=== PATIENT | female | born 1980 | race Caucasian/White ===

== ENCOUNTER 2016-06-20 21:05 | Emergency (ER) | payer OTHER ==
[~2016-06-20 21:05] MED LIST: GLUCOPHAGE 500500 MG PO; NORCO 5-325 TA1 EACH PO
[2016-06-20 22:51] LABS: HEMOGLOBIN 13.5 gm/dl (12.3-15.3); RED BLOOD COUNT 4.72 M/UL (4.00-5.10)
[2016-06-20 23:15] LABS: BUN/CREATININE RATIO 12 (0-10)
== END 2016-06-21 05:05 | disposition home or self-care (01) ==
LOC: ER1 21:05
PROVIDERS: Emergency Medicine
DX: R07.2 Precordial pain (principal); R55 Syncope and collapse
CPT/HCPCS: 36415; 70450; 80053; 82550; 82553; 83690; 83874; 84484; 84703; 85025; 85610; 85730; 93005; 96360; 99285; J7030; J7050; Q9963

== ENCOUNTER → 2016-07-26 | Outpatient (CLI) | payer OTHER | LOC: HEART 5 07:18 | DX: R55 Syncope and collapse (principal); R07.9 Chest pain, unspecified | CPT/HCPCS: 78451; 78452; 93306; A9502 ==